=== PATIENT | female | born 1935 | race Two or more races ===

== ENCOUNTER 2022-09-29 13:28 | Inpatient (IN) | payer OTHER ==
[~2022-09-29] VITALS: Ht 180.3 cm; Wt 50.3 kg
[2022-09-29] MEDS ORDERED: VALSARTAN320 MG (14:42)
[2022-09-29] MEDS ORDERED: LASIX20 MG (14:43)
[2022-09-29] MEDS ORDERED: ZOCOR40 MG (14:43)
[2022-09-29] MEDS ORDERED: TRICOR145 MG (14:43)
[2022-09-29] MEDS ORDERED: NORVASC2.5 MG (14:43)
[2022-09-29] MEDS ORDERED: BAYER CHEWABLE81 MG (14:43)
[2022-09-29] MEDS ORDERED: PROTONIX40 MG (14:43)
[2022-09-29] MEDS ORDERED: SYNTHROID112 MCG (14:43)
--- NOTE | 2022-09-29 14:48 | NUR ---
SE RECIBE PACIENTE FEMENINA DE 87 [address] DESPIERTA Y ALERTA EN COMPANIA DE HIJA CON QUEJA PRINCIPAL DE DOLOR E INFLAMACION EN BRAZO RT LUEGO DE CAIDA HOY. SE COLOCA CABESTRILLO
--- NOTE | 2022-09-29 16:26 | NUR ---
PACIENTE PENDIENTE A PLACA.
--- NOTE | 2022-09-29 17:37 | NUR ---
SE CANALIZA APCIENTE Y SE ADMINISTRA MEDS CORRINE ORDEN MEDICA. SE KIRILL MUESTRAS DE LABORATORIO Y SE ENVIAN A LABORATORIO. PACIENT EPENDIENTE A PLACA DE PECHO Y EKG. PACIENTE CONSULTADO CON DR. EVANS
[2022-09-30] MEDS ORDERED: PERCOCET 5-3251 EACH PO (13:31)
[2022-09-30] MEDS ORDERED: CEFADROXIL500 MG PO (13:31)
[2022-09-30] MEDS ORDERED: ALEVE220 M1 PO (13:31)
== END 2022-09-30 17:55 | disposition home or self-care (01) | DRG 512 ==
LOC: ER 13:28 → SURH 18:26
PROVIDERS: ADMIT Orthopaedic Surgery; ATTEND Orthopaedic Surgery
PROC: 0PSH04Z Reposition Right Radius with Internal Fixation Device, Open Approach (ICD-10-PCS; principal; 2022-09-29)
PROC: 0PUH0JZ Supplement Right Radius with Synthetic Substitute, Open Approach (ICD-10-PCS; 2022-09-29)
DX: S52.571A Other intraarticular fracture of lower end of right radius, initial encounter for closed fracture (principal); Z20.822 Contact with and (suspected) exposure to COVID-19